=== PATIENT | female | born 1970 | race Caucasian/White ===

== ENCOUNTER 2016-07-21 09:41 | Emergency (ER) | payer OTHER ==
--- NOTE | 2016-07-21 11:06 | ED CLINICAL REPORT ---
Clinical Report - Physicians/Mid Levels [facility] [address] [place] [address] 07/21/2016 9:40 Patient: ANNETTE NOBLES Time Seen: 09:49; initial patient contact. Arrived- By private vehicle. Historian- patient. HISTORY OF PRESENT ILLNESS Chief Complaint: DENTAL PAIN. This started yesterday and is still present and worsening. (persistent). It was gradual in onset and has been constant. Pain described as moderate. The patient has had toothache. No swollen jaw or face, jaw pain or facial pain. Similar symptoms previously: Many times. Recent medical care: The patient was seen recently in a clinic. ( Dental clinic, started her on Clindamycin. Reviewed Pt's JACINTA report, she receives #84 Hydrocodone/APAP 7.5/325 and # 56 Methadone 5 mg monthly.). REVIEW OF SYSTEMS No fever or enlarged lymph nodes. All systems otherwise negative, except as recorded above. PAST HISTORY Torticollis. Cellulitis. Hives. Allergic Reaction. Dental Abscess. Post-Op Complications. Scabies. Arthritis. SURGERIES: . Knee Surgery. Shoulder Surgery. SOCIAL HISTORY Current every day smoker. No alcohol use or drug use. ADDITIONAL NOTES The nursing notes have been reviewed. PHYSICAL EXAM Vital Signs: 07/21/2016 09:46 BP: 115/60. HR: 72. RR: 18. O2 saturation: 100%. Temp: 98.3 F. Pain level now: 9/10. Have been reviewed as normal. Appearance: Alert. Patient in mild distress. Head: Normal external inspection. ENT: Moderate, extensive dental decay. Moderate dental tenderness of a single tooth with gingival tenderness (lower left second premolar). No gingival induration, swelling or fluctuance. Nose normal. Pharynx normal. Gums normal. No trismus present. Neck: No adenopathy. Skin: No rash. Neuro: Oriented X 3. PROGRESS AND PROCEDURES Dental Nerve Block: Time: 10:50. Per protocol, time-out completed immediately before the procedure. Inferior Alveolar Block. Landmarks were identified. Topical anesthetic applied. Total volume of 4 mL 2% Lidocaine and 0.5% Marcaine infiltrated using a 25-gauge needle. Patient cooperative during procedure. No complications encountered. Excellent anesthesia achieved. Course of Care: 13:24. Inferior Alveolar block. Physical exam findings are improved. Symptoms much better. Disposition: Discharged home in good and improved condition. Condition: good. CLINICAL IMPRESSION Moderate dental pain. INSTRUCTIONS Apply ice for 20 minutes four times a day. Don't apply ice directly to skin (NO HEAT!). Your Current Medications: CONTINUE TAKING THE FOLLOWING MEDICATIONS: Clindamycin HCl Oral : Capsule 300 mg, 1 capsule 3x a day. Hydrocodone-Acetaminophen Oral : 7.5 mg 3x a day, prn, for shoulder pain. Ibuprofen Oral. Methadone HCl Oral : Tablet 10 mg, 1 tablet hs. Follow-up: Follow up with your doctor in about four days. Call for an appointment. Screening today revealed the patient's blood pressure to be in the normal range. (Electronically signed by Nawaf Velasco Dr. 07/21/2016 11:08)
--- NOTE | 2016-07-21 11:06 | ED CLINICAL REPORT ---
Clinical Report - Physicians/Mid Levels [facility] [address] [place] [address] 07/21/2016 9:40 Patient: ANNETTE NOBLES Time Seen: 09:49; initial patient contact. Arrived- By private vehicle. Historian- patient. HISTORY OF PRESENT ILLNESS Chief Complaint: DENTAL PAIN. This started yesterday and is still present and worsening. (persistent). It was gradual in onset and has been constant. Pain described as moderate. The patient has had toothache. No swollen jaw or face, jaw pain or facial pain. Similar symptoms previously: Many times. Recent medical care: The patient was seen recently in a clinic. ( Dental clinic, started her on Clindamycin. Reviewed Pt's JACINTA report, she receives #84 Hydrocodone/APAP 7.5/325 and # 56 Methadone 5 mg monthly.). REVIEW OF SYSTEMS No fever or enlarged lymph nodes. All systems otherwise negative, except as recorded above. PAST HISTORY Torticollis. Cellulitis. Hives. Allergic Reaction. Dental Abscess. Post-Op Complications. Scabies. Arthritis. SURGERIES: . Knee Surgery. Shoulder Surgery. SOCIAL HISTORY Current every day smoker. No alcohol use or drug use. ADDITIONAL NOTES The nursing notes have been reviewed. PHYSICAL EXAM Vital Signs: 07/21/2016 09:46 BP: 115/60. HR: 72. RR: 18. O2 saturation: 100%. Temp: 98.3 F. Pain level now: 9/10. Have been reviewed as normal. Appearance: Alert. Patient in mild distress. Head: Normal external inspection. ENT: Moderate, extensive dental decay. Moderate dental tenderness of a single tooth with gingival tenderness (lower left second premolar). No gingival induration, swelling or fluctuance. Nose normal. Pharynx normal. Gums normal. No trismus present. Neck: No adenopathy. Skin: No rash. Neuro: Oriented X 3. PROGRESS AND PROCEDURES Dental Nerve Block: Time: 10:50. Per protocol, time-out completed immediately before the procedure. Inferior Alveolar Block. Landmarks were identified. Topical anesthetic applied. Total volume of 4 mL 2% Lidocaine and 0.5% Marcaine infiltrated using a 25-gauge needle. Patient cooperative during procedure. No complications encountered. Excellent anesthesia achieved. Course of Care: 13:24. Inferior Alveolar block. Physical exam findings are improved. Symptoms much better. Disposition: Discharged home in good and improved condition. Condition: good. CLINICAL IMPRESSION Moderate dental pain. INSTRUCTIONS Apply ice for 20 minutes four times a day. Don't apply ice directly to skin (NO HEAT!). Your Current Medications: CONTINUE TAKING THE FOLLOWING MEDICATIONS: Clindamycin HCl Oral : Capsule 300 mg, 1 capsule 3x a day. Hydrocodone-Acetaminophen Oral : 7.5 mg 3x a day, prn, for shoulder pain. Ibuprofen Oral. Methadone HCl Oral : Tablet 10 mg, 1 tablet hs. Follow-up: Follow up with your doctor in about four days. Call for an appointment. Screening today revealed the patient's blood pressure to be in the normal range. (Electronically signed by Nawaf Velasco Dr. 07/21/2016 11:08)
--- NOTE | 2016-07-21 11:06 | ED NURSING NOTES ---
Clinical Report - Nurses [facility] [address] [place] [address] 07/21/2016 9:40 Patient: ANNETTE NOBLES TRIAGE Triage time 09:46. Acuity: LEVEL 4. Chief Complaint: TOOTHACHE and JAW PAIN. Alert. KAYCEE COMA SCORE: [place] Coma Scale: 15- eyes open spontaneously (4); best verbal response- oriented x 4 (5); best motor response- obeys commands (6). --09:54 Saige Nguyen R.N. 09:46 07/21/16. BP: 115/60. HR: 72. RR: 18. O2 saturation: 100% on room air. Temp: 98.3 F (oral). Pain level now: 12/18. --09:54 Saige Nguyen R.N. Weight: 68 kg stated. Height/Length: 62 inches Per Patient. BMI: 27.4. --09:49 Saige Nguyen R.N. Medications Hydrocodone-Acetaminophen Oral 7.5 mg, 3x a day as needed (for shoulder pain). Methadone HCl Oral (Tablet 10 mg) 1 tablet, hs . --09:47 Saige Nguyen R.N. Ibuprofen Oral. --09:47 Saige Nguyen R.N. Clindamycin HCl Oral (Capsule 300 mg) 1 capsule, 3x a day. --09:48 Saige Nguyen R.N. Medication/allergy information source: the patient. --09:54 Saige Nguyen R.N. Allergies Morphine and Related. --09:48 Saige Nguyen R.N. History Arrived by private vehicle. Historian: patient. Unaccompanied. Primary physician (Berenice). Onset. (about 4 days). ( saw dentist yesterday and started on abx and Ibuprofen). PAST MEDICAL HX: Last normal menstrual period- June 2016, has IUD. SOCIAL HX: Heavy tobacco smoker- less than 1 pack per day. No alcohol use or drug use. FALL RISK ASSESSMENT: Fall risk assessment completed. No fall risk identified. FUNCTIONAL ASSESSMENT: Functional assessment: no impairments noted. LEARNING NEEDS ASSESSMENT: The learning needs assessment revealed no barriers. --09:54 Saige Nguyen R.N. PROBLEMS: Torticollis. Cellulitis. Hives. Allergic Reaction. Dental Abscess. Post-Op Complications. Scabies. Arthritis. --09:49 Saige Nguyen R.N. ADDITIONAL SURGERIES: . Knee Surgery. Shoulder Surgery. --09:49 Saige Nguyen R.N. Assessment GENERAL / NEURO / PSYCH: The patient is awake and alert, is oriented and cooperative and appears uncomfortable. She has poor eye contact. RESPIRATORY: Respirations not labored. SKIN: Skin is warm and dry. --09:54 Saige Nguyen R.N. Interventions ID and allergy band on patient. To treatment room. --09:54 Saige Nguyen R.N. PHYSICAL ASSESSMENT 10:23 07/21/16. Ambulatory to room. ( lies on the bed calling out, "ow", "help me, I'm in so much pain", "it hurts"). GENERAL / NEURO / PSYCH: The patient is awake and alert, is oriented, has poor eye contact and appears agitated. RESPIRATORY: Respirations not labored. SKIN: Skin is warm and dry. --10:24 Saige Nguyen R.N. NURSING PROGRESS NOTES 10:24 07/21/16. Head of bed elevated. Call light placed in reach. Side rails up x 1. Bed placed in lowest position. Brakes of bed on. --10:24 Saige Nguyen R.N. 10:55 ERMD did dental block. --10:56 Saige Nguyen R.N. 11:20. Reassessment after intervention. She is calm. Overall patient status is improved- she states feels better (pt calmer, no longer crying out). GENERAL / NEURO / PSYCH: Alert. Oriented X 4. RESPIRATORY: No respiratory distress. SKIN: Skin is warm and dry. --11:50 Saige Nguyen R.N. DISPOSITION / DISCHARGE Departure time: 1120. Condition at departure: improved. No learning barriers present. Discharge instructions provided and reviewed with the patient. Patient verbalized understanding. Written instructions provided in [place]. The patient was discharged home and unaccompanied at time of discharge. She left the Emergency Department ambulatory and via private vehicle. FALL RISK ASSESSMENT: Fall risk assessment completed. No fall risk identified. --11:59 Saige Nguyen R.N. 11:20 07/21/16. BP: 123/70. HR: 70. RR: 18. O2 saturation: 99% on room air. Temp: 98 F. Pain level now: 08/17. --11:59 Saige Nguyen R.N. Locked/Released at 07/21/2016 13:24 by Saige Nguyen R.N.
--- NOTE | 2016-07-21 13:24 | ED MED RECONCILIATION SUMMARY ---
Patient: ANNETTE NOBLES Medication Reconciliation Report [facility] VisitID: [id number] [address] [place] [address] 46y, F Registration Date/Time: 07/21/2016 Weight: 68.0 kg Height/Length: 62 in. BMI: 27.4 ALLERGIES: Morphine and Related The patient's Home Medications are listed below: CONTINUE TAKING THE FOLLOWING MEDICATIONS: Clindamycin HCl Oral (300 mg) 1 capsule, 3x a day Hydrocodone-Acetaminophen Oral 7.5 mg, 3x a day, for shoulder pain Ibuprofen Oral Methadone HCl Oral (10 mg) 1 tablet, hs The source(s) of the original Home Medication information: patient The following Medications were given to the patient in the Emergency Department: None. The following Medications were prescribed to the patient: None.
--- NOTE | 2016-07-21 13:24 | ED MED RECONCILIATION SUMMARY ---
Patient: ANNETTE NOBLES Medication Reconciliation Report [facility] VisitID: [id number] [address] [place] [address] 46y, F Registration Date/Time: 07/21/2016 Weight: 68.0 kg Height/Length: 62 in. BMI: 27.4 ALLERGIES: Morphine and Related The patient's Home Medications are listed below: CONTINUE TAKING THE FOLLOWING MEDICATIONS: Clindamycin HCl Oral (300 mg) 1 capsule, 3x a day Hydrocodone-Acetaminophen Oral 7.5 mg, 3x a day, for shoulder pain Ibuprofen Oral Methadone HCl Oral (10 mg) 1 tablet, hs The source(s) of the original Home Medication information: patient The following Medications were given to the patient in the Emergency Department: None. The following Medications were prescribed to the patient: None.
--- NOTE | 2016-07-21 13:24 | ED DISCHARGE INSTRUCTIONS ---
Patient: ANNETTE NOBLES General Instructions [facility] VisitID: [id number] [place] [address] 46y, F Registration Date/Time: 07/21/2016 Moderate dental pain. INSTRUCTIONS Apply ice for 20 minutes four times a day. Don't apply ice directly to skin (NO HEAT!). Your Current Medications: CONTINUE TAKING THE FOLLOWING MEDICATIONS: Clindamycin HCl Oral : Capsule 300 mg, 1 capsule 3x a day. Hydrocodone-Acetaminophen Oral : 7.5 mg 3x a day, prn, for shoulder pain. Ibuprofen Oral. Methadone HCl Oral : Tablet 10 mg, 1 tablet hs. Follow-up: Follow up with your doctor in about four days. Call for an appointment. Screening today revealed the patient's blood pressure to be in the normal range. ADDITIONAL INFORMATION Dental Pain A crack or cavity in the tooth, which exposes the sensitive inner area of the tooth can cause tooth pain. An infection in the gum or the root of the tooth can cause pain and swelling. The pain is often made worse by drinking hot or cold fluids, or biting on hard foods. Pain may spread from the tooth to the ear or jaw on the same side. Home Care: Avoid hot and cold foods and liquids since your tooth may be sensitive to temperature changes. If your tooth is chipped or cracked, or if there is a large open cavity, apply OIL OF CLOVES (available zxsy-onw-tpstzpa in drug stores) directly to the tooth to reduce pain. Some pharmacies carry an pcvf-kef-txkkkrr "toothache kit." This contains a paste, which can be applied over the exposed tooth to decrease sensitivity. A cold pack on your jaw over the sore area may help reduce pain. You may use acetaminophen (Tylenol) or ibuprofen (Motrin, Advil) to control pain, unless another medicine was prescribed. [ NOTE: If you have chronic liver or kidney disease or ever had a stomach ulcer or GI bleeding, talk with your doctor before using these medicines.] If you have signs of an infection, an antibiotic will be given. Take it as directed. Follow-Up as directed with a dentist. Your pain may go away with the treatment given. However, only a dentist can fully evaluate and treat the cause and prevent the pain from coming back again. TOOTHACHE IS A SIGN OF DISEASE IN YOUR TOOTH AND SHOULD BE EXAMINED AND TREATED BY A DENTIST. Get Prompt Medical Attention if any of the following occur: Your face becomes swollen or red Pain worsens or spreads to the neck Fever over 100.4 F (38.0 C) Unusual drowsiness; headache or stiff neck; weakness or fainting Pus drains from the tooth Difficulty swallowing or breathing Dental Cavity A dental cavity is a pit or crater in the enamel surface of the tooth. This exposes the sensitive inner layer of the tooth and causes pain. If untreated, the cavity will get bigger and may cause an infection or abscess in the root of the tooth. An infection in the tooth is a much more serious problem and may require a root canal or removal of the entire tooth. The tooth pain may be made worse by drinking hot or cold fluids. It may spread from the tooth to the ear or jaw on the same side. Home Care: Avoid hot and cold foods, and liquids since your tooth may be sensitive to temperature changes. If your tooth is chipped or cracked, or if there is a large open cavity, apply OIL OF CLOVES (available kyjc-ymz-aoilyzy in drug stores) directly to the tooth to reduce pain. Some pharmacies carry an mgwk-xhr-mrhlknl "toothache kit." This contains oil of cloves and a paste, which can be applied over the exposed tooth to decrease sensitivity. An ice pack on your jaw over the sore area may help to reduce pain. You may use acetaminophen (Tylenol) or ibuprofen (Motrin, Advil) to control pain, unless another pain medicine was prescribed. [ NOTE: If you have liver disease or ever had a stomach ulcer, talk with your doctor before using these medicines.] If you have signs of an infection, an antibiotic will be given. Take it as directed. Follow-Up with your dentist as directed. Although your pain may go away with the treatment given, only a dentist can fully evaluate and treat this problem to prevent further tooth damage. Get Prompt Medical Attention if any of the following occur: Redness or swelling of the face Pain worsens or spreads to the neck Fever over 100.5 F (38C) Unusual drowsiness; headache or stiff neck; weakness or fainting Pus drains from the tooth or gum Difficulty swallowing or breathing You have been given the following additional information: Dental Pain Dental Cavity (Electronically signed by Nawaf Velasco Dr. 07/21/2016 11:08)
--- NOTE | 2016-07-21 13:24 | ED MAR SUMMARY ---
..... Medication Administration Record [facility] [address] [place], [place] [id number] Patient: ANNETTE NOBLES Visit ID: [id number] 46y, F Weight: 68.0 kg Height/Length: 62 in BMI: 27.4 ALLERGIES: Morphine and Related
--- NOTE | 2016-07-21 13:24 | ED DISCHARGE INSTRUCTIONS ---
Patient: ANNETTE NOBLES General Instructions [facility] VisitID: [id number] [place] [address] 46y, F Registration Date/Time: 07/21/2016 Moderate dental pain. INSTRUCTIONS Apply ice for 20 minutes four times a day. Don't apply ice directly to skin (NO HEAT!). Your Current Medications: CONTINUE TAKING THE FOLLOWING MEDICATIONS: Clindamycin HCl Oral : Capsule 300 mg, 1 capsule 3x a day. Hydrocodone-Acetaminophen Oral : 7.5 mg 3x a day, prn, for shoulder pain. Ibuprofen Oral. Methadone HCl Oral : Tablet 10 mg, 1 tablet hs. Follow-up: Follow up with your doctor in about four days. Call for an appointment. Screening today revealed the patient's blood pressure to be in the normal range. ADDITIONAL INFORMATION Dental Pain A crack or cavity in the tooth, which exposes the sensitive inner area of the tooth can cause tooth pain. An infection in the gum or the root of the tooth can cause pain and swelling. The pain is often made worse by drinking hot or cold fluids, or biting on hard foods. Pain may spread from the tooth to the ear or jaw on the same side. Home Care: Avoid hot and cold foods and liquids since your tooth may be sensitive to temperature changes. If your tooth is chipped or cracked, or if there is a large open cavity, apply OIL OF CLOVES (available uslb-ptm-ekamvve in drug stores) directly to the tooth to reduce pain. Some pharmacies carry an nuyu-vhv-tjoldmb "toothache kit." This contains a paste, which can be applied over the exposed tooth to decrease sensitivity. A cold pack on your jaw over the sore area may help reduce pain. You may use acetaminophen (Tylenol) or ibuprofen (Motrin, Advil) to control pain, unless another medicine was prescribed. [ NOTE: If you have chronic liver or kidney disease or ever had a stomach ulcer or GI bleeding, talk with your doctor before using these medicines.] If you have signs of an infection, an antibiotic will be given. Take it as directed. Follow-Up as directed with a dentist. Your pain may go away with the treatment given. However, only a dentist can fully evaluate and treat the cause and prevent the pain from coming back again. TOOTHACHE IS A SIGN OF DISEASE IN YOUR TOOTH AND SHOULD BE EXAMINED AND TREATED BY A DENTIST. Get Prompt Medical Attention if any of the following occur: Your face becomes swollen or red Pain worsens or spreads to the neck Fever over 100.4 F (38.0 C) Unusual drowsiness; headache or stiff neck; weakness or fainting Pus drains from the tooth Difficulty swallowing or breathing Dental Cavity A dental cavity is a pit or crater in the enamel surface of the tooth. This exposes the sensitive inner layer of the tooth and causes pain. If untreated, the cavity will get bigger and may cause an infection or abscess in the root of the tooth. An infection in the tooth is a much more serious problem and may require a root canal or removal of the entire tooth. The tooth pain may be made worse by drinking hot or cold fluids. It may spread from the tooth to the ear or jaw on the same side. Home Care: Avoid hot and cold foods, and liquids since your tooth may be sensitive to temperature changes. If your tooth is chipped or cracked, or if there is a large open cavity, apply OIL OF CLOVES (available axrt-cdk-tjxnbmx in drug stores) directly to the tooth to reduce pain. Some pharmacies carry an crog-ckd-ngfbsbk "toothache kit." This contains oil of cloves and a paste, which can be applied over the exposed tooth to decrease sensitivity. An ice pack on your jaw over the sore area may help to reduce pain. You may use acetaminophen (Tylenol) or ibuprofen (Motrin, Advil) to control pain, unless another pain medicine was prescribed. [ NOTE: If you have liver disease or ever had a stomach ulcer, talk with your doctor before using these medicines.] If you have signs of an infection, an antibiotic will be given. Take it as directed. Follow-Up with your dentist as directed. Although your pain may go away with the treatment given, only a dentist can fully evaluate and treat this problem to prevent further tooth damage. Get Prompt Medical Attention if any of the following occur: Redness or swelling of the face Pain worsens or spreads to the neck Fever over 100.5 F (38C) Unusual drowsiness; headache or stiff neck; weakness or fainting Pus drains from the tooth or gum Difficulty swallowing or breathing You have been given the following additional information: Dental Pain Dental Cavity (Electronically signed by Nawaf Velasco Dr. 07/21/2016 11:08)
--- NOTE | 2016-07-21 13:24 | ED MAR SUMMARY ---
..... Medication Administration Record [facility] [address] [place], [place] [id number] Patient: ANNETTE NOBLES Visit ID: [id number] 46y, F Weight: 68.0 kg Height/Length: 62 in BMI: 27.4 ALLERGIES: Morphine and Related
== END 2016-07-21 11:20 | disposition home or self-care (01) ==
LOC: ED SRH 09:41
DX: K08.89 Other specified disorders of teeth and supporting structures (principal); F17.200 Nicotine dependence, unspecified, uncomplicated